=== PATIENT | male | born 1990 | race Caucasian/White ===

== ENCOUNTER 2017-04-28 19:20 | Emergency (ER) | payer BC ==
[~2017-04-28] VITALS: Ht 180.3 cm; Wt 70.3 kg
[2017-04-28 19:35] VITALS: BP 104/46
--- NOTE | 2017-04-28 19:35 | NUR ---
PT AMBULATED TO ER BED 2
[2017-04-28 19:51] LABS: APPEARANCE,URINE CLEAR (CLEAR); BILIRUBIN,URINE NEGATIVE (NEGATIVE); BLOOD, URINE NEGATIVE (NEGATIVE); COLOR,URINE YELLOW (YELLOW); LEUKOCYTE ESTERASE ,URINE NEGATIVE (NEGATIVE); NITRITE, URINE NEGATIVE (NEGATIVE); UGLUCOSE NEGATIVE (NEGATIVE)
[2017-04-28 19:57] LABS: BARBITURATE, URINE NEG. ng/ml (NEG <=200); BENZODIAZEPINE, URINE NEG. ng/mL (NEG <=200); CANNABINOID, URINE POS. ng/mL (NEG <=50); COCAINE, URINE NEG. ng/mL (NEG <=300); OPIATE, URINE NEG. ng/mL (NEG <=2000); PHENCYCLIDINE SCREEN,URINE NEG. ng/mL (NEG <=25)
--- NOTE | 2017-04-28 20:00 | NUR ---
26Y/M BIBA FOR SUICIDAL IDEATION. HX OF PTSD, NKA. PER EMS PT FAMILY CALLED PD BECAUSE PT WAS VOCALIZING WANTING TO HURT HIMSELF. ON ARRIVAL PT IS COOPERATIVE, ANXIOUS, AA&OX4. PT DENIES PAIN, N/V/D, DIZZINESSS. PER PT HE TOOK 3 50 MG TRAZADONE AROUND 5-6PM TO GO TO SLEEP AND DRANK 4-5 BEERS. PT STATES HE IS SUPPOSE TO TAKE MEDICATION FOR PTSD BUT DOES NOT AT THIS TIME.
[2017-04-28 20:12] LABS: BASOPHILS # (AUTO) 0.5 K/uL (0.00-0.22); EOSINOPHILS # (AUTO) 0.1 K/uL (0-0.4); HEMATOCRIT 45.5 % (36-52); LYMPHOCYTES # (AUTO) 2.5 K/uL (2.0-11.5); MEAN CORPUSCULAR HEMOGLOBIN 30 pg (27-31); MEAN CORPUSCULAR HGB CONC 33 g/dL (33-37); MEAN CORPUSCULAR VOLUME 92 fL (80-94); MONOCYTES # (AUTO) 0.5 K/uL (0.8-1.0); NEUTROPHILS # (AUTO) 5.6 K/uL (1.8-7.7); PLATELET COUNT (AUTO) 233 K/uL (140-450); RED BLOOD CELL COUNT(AUTO) 4.97 MIL/uL (4.20-6.10); RED CELL DISTRIBUTION WIDTH 12.8 % (11.6-13.7); WHITE BLOOD COUNT (AUTO) 9.2 K/uL (4.8-10.8)
--- NOTE | 2017-04-28 20:14 | NUR ---
PO[facility] [employer]OL CONTACTED, ADVISED TO MONITOR PT FOR SEDATION, BRADYCARDIA, , SEIZURE, MONITOR PT FOR 4-6 HOURS FOR PEAK EFFECTS OF MEDICATION. LABS AND EKG ORDERED.
[2017-04-28 20:21] LABS: ANION GAP 16.3 (8-16); CARBON DIOXIDE 27.1 mmol/L (21-32); CHLORIDE 108 mmol/L (98-107); CREATININE 0.9 mg/dL (0.7-1.3); GFR ARICAN-AMERICAN 132 mL/min (>90); GLUCOSE 99 mg/dL (74-106); POTASSIUM 3.4 mmol/L (3.5-5.1); SODIUM SERUM 148 mmol/L (136-145); UREA NITROGEN, BLOOD 7 mg/dL (7-18)
[2017-04-28 20:26] LABS: ALBUMIN 4.2 g/dL (3.4-5.0); ASPARTATE AMINOTRANSFERASE 26 U/L (15-37); TOTAL BILIRUBIN 0.3 mg/dL (0.0-1.0)
[2017-04-28 20:27] LABS: ACETAMINOPHEN < 0.5 ug/ml (10-30); SALICYLATE < 2.8 mg/dL (2.8-20.0)
[2017-04-28] MEDS ORDERED: POTASSIUM CHLORIDE 20% 40 MEQ/15 ML UDC PO ONE (20:35)
--- NOTE | 2017-04-28 22:30 | NUR ---
PT SITTING BED, AA&OX4, TALKING TO STAFF, COOPERATIVE, ANXIOUS.
[2017-04-28] MEDS ORDERED: NACL 0.9% 1,000 ML IV ONE (23:55)
--- NOTE | 2017-04-29 | NUR ---
PT SLEEPING IN BED WILL CONTINUE TO MONITOR.
[2017-04-29] MEDS ORDERED: NACL 0.9% 1,000 ML IV ONE (01:35)
--- NOTE | 2017-04-29 02:06 | NUR ---
PT WILL GO TO [facility], REPORT CALLED TO [facility] FOR TRANSPORT 30MIN.
--- NOTE | 2017-04-29 02:36 | NUR ---
Patient appears to be resting comfortably in bed. Vital Signs within normal limits. Respirations even and unlabored.
[2017-04-29 02:55] VITALS: BP 127/89
--- NOTE | 2017-04-29 02:57 | NUR ---
Patient discharged with v/s stable. Written and verbal after care instructions given and explained. Patient alert, oriented and verbalized understanding of instructions. Ambulatory with by caregiver. All questions addressed prior to discharge. ID band removed. Patient advised to follow up with PMD.NO Rx given. Patient educated on indication of medication including possible reaction and side effects. Opportunity to ask questions provided and answered. Patient to be transferred to [facility]. Is being transferred due to 5150 CARE. Receiving facility has accepting physician and available space. ER physician has signed transfer form. Patient or responsible libertarian has agreed to transfer and signed form. Patient belongings inventoried and will be sent with patient. Copy of nursing notes, lab reports, EKG, Physicians Orders and X-rays to be sent with patient. Report called to RICHARD BY NAVI MCKEON at receiving facility. [facility] ambulance service has been called for transfer. ETA is NOW.
== END 2017-04-29 02:55 ==
LOC: MED 19:20
DX: R45.851 Suicidal ideations (principal); S01.91XA Laceration without foreign body of unspecified part of head, initial encounter; F43.10 Post-traumatic stress disorder, unspecified; F41.9 Anxiety disorder, unspecified; R45.1 Restlessness and agitation; W22.8XXA Striking against or struck by other objects, initial encounter; Y93.E5 Activity, floor mopping and cleaning; Y92.89 Other specified places as the place of occurrence of the external cause; Y99.8 Other external cause status
CPT/HCPCS: 36415; 80053; 80305; 81003; 85025; 96360; 96361; 99285; G0480; G0482; J7030

== ENCOUNTER 2018-07-12 15:45 | Inpatient (IN) | payer BC, OTHER ==
[~2018-07-12] VITALS: Ht 182.9 cm; Wt 72.6 kg
[2018-07-12 15:45] VITALS: BP 139/78
--- NOTE | 2018-07-12 16:00 | NUR ---
PT CALLED TO BE TRIAGE. PATIENT LEFT WITHOUT BEING SEEN BY DR. LANE. NO FURTHER CARE PROVIDED FOR PATIENT.
--- NOTE | 2018-07-12 16:05 | NUR ---
PER WILLARD DIAS, PT IS TO BE PUT ON 5150 HOLD. PT WILL BE BROUGHT BACK.
--- NOTE | 2018-07-12 16:30 | NUR ---
PATIENT BIB [facility]. SITTING IN CHAIR E AT THIS TIME. NO SIGNS OF DISTRESS.
--- NOTE | 2018-07-12 16:33 | NUR ---
PT TAKEN TO ER BED 06
--- NOTE | 2018-07-12 16:39 | NUR ---
[place] [facility] AT BEDSIDE AT THIS TIME
--- NOTE | 2018-07-12 16:40 | NUR ---
Pt report given to ARTURO MCELROY. Transfer of care at this time.
--- NOTE | 2018-07-12 16:46 | NUR ---
27/M BIB EMS/[place] [employer] FOR 5150/SI IDEATION. PT REPORTS THAT HE WANS TO HURT MYSELF BUT HAS NO SPECIFIC PLAN. PMH--PTSD (), ETOH ABUSE. PATIENT STATES PAIN OF 0/10 AT THIS TIME. PATIENT POSITIONED FOR COMFORT; HOB ELEVATED; BEDRAILS UP X2; BED DOWN. ER MD MADE AWARE OF PT STATUS.
[2018-07-12] MEDS ORDERED: FAMOTIDINE 20 MG/2 ML VIAL IVP ONE (16:55)
[2018-07-12] MEDS ORDERED: MULTIVITAMIN-12 10 ML, THIAMINE 100 MG, MAGNESIUM SULFATE 50% 2,000 MG, FOLIC ACID 5 MG... IV ONE ×5 (16:55)
[2018-07-12] MEDS ORDERED: diphenhydrAMINE 50 MG/ML VIAL IVP ONE (16:55)
[2018-07-12 17:18] LABS: APPEARANCE,URINE CLEAR (CLEAR); BILIRUBIN,URINE NEGATIVE (NEGATIVE); BLOOD, URINE NEGATIVE (NEGATIVE); COLOR,URINE YELLOW (YELLOW); LEUKOCYTE ESTERASE ,URINE NEGATIVE (NEGATIVE); NITRITE, URINE NEGATIVE (NEGATIVE); UGLUCOSE NEGATIVE (NEGATIVE)
[2018-07-12 17:23] LABS: BARBITURATE, URINE NEG. ng/ml (NEG <=200); BENZODIAZEPINE, URINE NEG. ng/mL (NEG <=200); CANNABINOID, URINE NEG. ng/mL (NEG <=50); COCAINE, URINE NEG. ng/mL (NEG <=300); OPIATE, URINE NEG. ng/mL (NEG <=2000); PHENCYCLIDINE SCREEN,URINE NEG. ng/mL (NEG <=25)
[2018-07-12 17:38] LABS: BASOPHILS # (AUTO) 0.1 K/uL (0.00-0.22); BASOPHILS % (AUTO) 0.7 % (0.0-2.0); EOSINOPHILS # (AUTO) 0.1 K/uL (0-0.4); EOSINOPHILS % (AUTO) 1.3 % (0.0-4.0); HEMATOCRIT 45.7 % (36-52); HEMOGLOBIN 15.5 g/dL (12.0-18.0); LYMPHOCYTES # (AUTO) 3.2 K/uL (2.0-11.5); MEAN CORPUSCULAR HEMOGLOBIN 31 pg (27-31); MEAN CORPUSCULAR HGB CONC 34 g/dL (33-37); MEAN CORPUSCULAR VOLUME 90.7 fL (80-94); MONOCYTES # (AUTO) 0.4 K/uL (0.8-1.0); MONOCYTES % (AUTO) 5.1 % (1.7-9.3); NEUTROPHILS # (AUTO) 4.6 K/uL (1.8-7.7); NEUTROPHILS % (AUTO) 54.9 % (42.2-75.2); PLATELET COUNT (AUTO) 279 K/uL (140-450); RED BLOOD CELL COUNT(AUTO) 5.04 MIL/uL (4.20-6.10); RED CELL DISTRIBUTION WIDTH 13.8 % (11.6-13.7); WHITE BLOOD COUNT (AUTO) 8.3 K/uL (4.8-10.8)
--- NOTE | 2018-07-12 17:42 | NUR ---
Patient appears to be resting comfortably in bed. Vital Signs within normal limits. Respirations even and unlabored. DENIES TO HURT HIMSELF OR OTHERS AT THIS TIME. WILL CONTINUE TO MONITOR.
[2018-07-12 17:56] LABS: ANION GAP 10.6 (8-16); CHLORIDE 109 mmol/L (98-107); GFR ARICAN-AMERICAN 116 mL/min (>90); GLUCOSE 98 mg/dL (74-106); POTASSIUM 3.6 mmol/L (3.5-5.1); SODIUM SERUM 148 mmol/L (136-145); UREA NITROGEN, BLOOD 10 mg/dL (7-18)
[2018-07-12 18:05] LABS: ALBUMIN 4.3 g/dL (3.4-5.0); ASPARTATE AMINOTRANSFERASE 28 U/L (15-37); TOTAL BILIRUBIN 0.3 mg/dL (0.0-1.0)
[2018-07-12] MEDS ORDERED: CITA40TA13 PO (18:18)
[2018-07-12] MEDS ORDERED: GABA400C PO (18:18)
[2018-07-12] MEDS ORDERED: PANT40EC PO (18:18)
[2018-07-12 18:24] LABS: ACETAMINOPHEN < 0.5 ug/ml (10-30); SALICYLATE < 2.8 mg/dL (2.8-20.0)
--- NOTE | 2018-07-12 18:33 | NUR ---
TELEPSYCH INITIATED ORDERED BY DR. Jess LANE
--- NOTE | 2018-07-12 19:12 | NUR ---
Pt report given to EMILIA MCELROY. Transfer of care at this time.
--- NOTE | 2018-07-12 19:30 | NUR ---
KARLA MCELROY AT BEDSIDE SITTER FOR PT.
--- NOTE | 2018-07-12 19:38 | NUR ---
TELEPSYCH, DR. NICOLE, CALLED BACK AND SPOKE WITH NAVI CROSS
--- NOTE | 2018-07-12 19:41 | NUR ---
SAMANTHAAR PROVIDED TO DR. NICOLE IN PREPARATION FOR TELE-SCH.
--- NOTE | 2018-07-12 19:47 | NUR ---
TELEPSYCH, DR. NICOLE, SPEAKING WITH PT VIA REMOTE COMMUNICATION
--- NOTE | 2018-07-12 19:56 | NUR ---
TELEPSYCH, DR. NICOLE, CALLED BACK AND SPOKE WITH NAVI CROSS
--- NOTE | 2018-07-12 19:56 | NUR ---
SPOKE W/ DR. NICOLE, RECOMMENDATION IS TO KEEP THE HOLD IN PLACE. PER DR. NICOLE; PT STATED TO HIM THAT HE HAS ATTEMPTED TO SLIT HIS WRIST BEFORE, IS CURRENTLY HAVING NIGHTMARES AND FLASHBACKS, PT STATES HE IS UNDER TO MUCH STRESS AND WANTS HELP FOR HIS SI. --DR. QUEEN MADE AWARE.
--- NOTE | 2018-07-13 | NUR ---
Patient appears to be resting comfortably in bed. Vital Signs within normal limits. Respirations even and unlabored. Evy MCELROY at bedside as sitter.
--- NOTE | 2018-07-13 03:16 | NUR ---
Patient appears to be resting comfortably in bed. Vital Signs within normal limits. Respirations even and unlabored. Evy MCELROY at bedside.
--- NOTE | 2018-07-13 05:45 | NUR ---
Patient appears to be resting comfortably in bed. Vital Signs within normal limits. Respirations even and unlabored. Evy MCELROY at bedside.
[2018-07-13] MEDS ORDERED: DOCUSATE SODIUM 100 MG GELCAP PO PRN (06:20)
[2018-07-13] MEDS ORDERED: ONDANSETRON 4 MG/2 ML VIAL IM/IVP PRN (06:20)
[2018-07-13] MEDS ORDERED: ACETAMINOPHEN 325 MG TAB PO PRN (06:20)
--- NOTE | 2018-07-13 06:20 | NUR ---
packet still being reviewed by the following facilities [facility] will notify ER if placment is found.
[2018-07-13] MEDS ORDERED: LORazepam 2 MG/ML VIAL IVP PRN ×2 (06:25→06:30)
--- NOTE | 2018-07-13 06:38 | NUR ---
RECEIVED FROM ER PER WHEELCHAIR, AWAKE AND ALERT. NO SOB. DENIES PAIN AT THIS TIME. CARE PLANS FOR THE DAY DISCUSSED WITH HIM. SKIN INTACT. CTAB. NO EDEMA. DX. SUICIDAL IDEATION. HX. ETOH AND PTSD. PT. AT THIS TIME CALM AND QUIET. PT. WILL BE WITH SITTER 1:1. ABLE TO VERBALIZE NEEDS WELL. AFEBRILE.
--- NOTE | 2018-07-13 06:40 | NUR ---
Patient will be admitted to care of Dr. Bowen. Admited to Med-Surg. Patient went to room 109-B via wheelchair; VSS. Belongings list completed. Report to NAVI Benitez.
[2018-07-13 06:44] VITALS: BP 105/62
[2018-07-13] MEDS ORDERED: NACL 0.45% 1,000 ML IV ONE (06:45)
--- NOTE | 2018-07-13 07:30 | NUR ---
Received report from pm nurse Eli. Pt asleep in bed, respirations even & nonlabored, FLACC 0.
[2018-07-13 08:00] VITALS: BP 119/69
--- NOTE | 2018-07-13 08:00 | NUR ---
Pt asleep in bed upon entering room. Wakes up when name is called. Pt is aaox4, medical hx provided by pt. No c/o discomfort, respirations even & nonlabored. Left ac IV intact & asymptomatic. Sitter at bedside for continuous monitoring.
--- NOTE | 2018-07-13 08:04 | NUR ---
PATIENT HAS BEEN SCREENED AND CATEGORIZED LOW NUTRITION RISK. PATIENT WILL BE SEEN WITHIN 7 DAYS OF ADMISSION. 07/19/[address]
[2018-07-13 08:34] LABS: PROTHROMBIN TIME 10.2 secs (10.8-13.4)
[2018-07-13 08:48] LABS: CHOL/HDL RATIO 2.8 (1-4.5); FREE T4 (FREE THYROXINE) 0.71 ng/dL (0.76-1.46); MAGNESIUM 1.8 mg/dL (1.8-2.4); PHOSPHORUS 2.5 mg/dL (2.5-4.9); THYROID STIMULATING HORMONE 1.19 uIU/mL (0.34-3.74)
[2018-07-13] MEDS ORDERED: THIAMINE 100 MG TAB PO SCH (09:00)
[2018-07-13] MEDS ORDERED: FOLIC ACID 1 MG TAB PO SCH (09:00)
[2018-07-13] MEDS: chlordiazePOXIDE 25 MG CAP PO SCH ×3 (09:06→18:25)
--- NOTE | 2018-07-13 09:06 | NUR ---
Zofran given for c/o nausea. No episode of vomiting. Ice chips provided. Pt calm & cooperative with care. Sitter at bedside for continuous monitoring.
[2018-07-13] MEDS ORDERED: HYDR-1093 PO (10:00)
[2018-07-13] MEDS ORDERED: CITALOPRAM 20 MG TAB PO SCH ×2 (10:01→10:05)
--- NOTE | 2018-07-13 10:06 | NUR ---
Pt asleep, wakes up when name is called. AAOx4. No c/o discomfort, states no longer feeling nauseous. Able to eat breakfast without difficulty. Sitter at bedside.
[2018-07-13] MEDS ORDERED: MULTIVITAMIN 1 TAB PO SCH (11:16)
--- NOTE | 2018-07-13 11:45 | NUR ---
PATIENT LEFT THE FACILITY AT 2345 WITH [facility]. Addendum: 07/14/18 at 0004 by Rosi Ma RN INCORRECT TIME. IT SHOULD BE 2345 07/13/18
--- NOTE | 2018-07-13 13:00 | NUR ---
Received call from Sarai from [facility]. Per Sarai, pt will need an EKG done & physician will need to speak with receiving doctor (Dr. Shaw [phone]). Dr. Richards notified & states she will call Dr. Shaw & input order for EKG.
[2018-07-13] MEDS ORDERED: ATI2I IVP ×2 (13:47)
[2018-07-13] MEDS ORDERED: LIB25 PO (13:47)
[2018-07-13] MEDS ORDERED: FOLI1TAB90 PO (13:47)
[2018-07-13] MEDS ORDERED: THIA-34 PO (13:47)
[2018-07-13] MEDS ORDERED: MULT-405 PO (13:47)
[2018-07-13 14:43] LABS: ANION GAP 8.7 (8-16); CARBON DIOXIDE 30.3 mmol/L (21-32)
[2018-07-13 16:00] VITALS: BP 105/67
--- NOTE | 2018-07-13 18:13 | NUR ---
CALLED [facility] AND SPOKE TO CAROL THE [facility] . PATIENT WILL GO TO [facility] UNIT RM 901 BED B AT 2330. ACCE[address] MD DR. AGFFNEY, REPORT TO [phone]
--- NOTE | 2018-07-13 19:17 | NUR ---
Report given to pm nurse Kisses.
--- NOTE | 2018-07-13 19:30 | NUR ---
PATIENT SLEEPING AROUSABLE BY NAME. RESPIRATION EVEN UNLABORED ON ROOM AIR. DENIES PAIN. SKIN IS WARM AND DRY. ALL SAFETY MEASURE IN PLACE. 1 TO 1 SITTER AT BEDSIDE. PLAN OF CARE WAS DISCUSSED. BED IS AT LOW POSITION. CALL LIGHT WITHIN REACH.
[2018-07-13 22:00] VITALS: BP 105/67
--- NOTE | 2018-07-13 22:49 | NUR ---
GAVE REPORT TO SEVEN MCELROY [facility]. AWAITING FOR DAIRY TESTER.
[2018-07-14] MEDS ORDERED: CITALOPRAM 20 MG TAB PO SCH ×2 (09:00)
[2018-07-14] MEDS ORDERED: MULTIVITAMIN 1 TAB PO SCH (09:00)
[2018-07-14] MEDS ORDERED: hydrOXYzine HCL 25 MG TAB PO SCH ×2 (09:00)
== END 2018-07-13 23:50 | disposition short-term general hospital (02) | DRG 775 ==
LOC: MED 15:45 → MTU 07-13 06:17
PROVIDERS: ADMIT General Practice; ATTEND General Practice
DX: F10.129 Alcohol abuse with intoxication, unspecified (principal); G92 Toxic encephalopathy; E87.0 Hyperosmolality and hypernatremia; R45.851 Suicidal ideations; Y90.8 Blood alcohol level of 240 mg/100 ml or more; E78.5 Hyperlipidemia, unspecified; F41.1 Generalized anxiety disorder; F32.9 Major depressive disorder, single episode, unspecified; F43.10 Post-traumatic stress disorder, unspecified; Y90.9 Presence of alcohol in blood, level not specified; F41.9 Anxiety disorder, unspecified; Z91.19 Patient's noncompliance with other medical treatment and regimen; E86.0 Dehydration
CPT/HCPCS: 36415; 80048; 80053; 80305; 81003; 82150; 82550; 83036; 83605; 83690; 83735; 83880; 84100; 84134; 84439; 84443; 85025; 85610; 85730; 87081; 93005; 96365; 96366; 96375; 99285; A9153; G0480; G0482; J1200; J2405; J3411; J3475; J3490; J7030

== ENCOUNTER 2019-11-05 07:08 | Emergency (ER) | payer OTHER ==
[~2019-11-05] VITALS: Ht 180.3 cm; Wt 71.7 kg
[~2019-11-05 07:08] MED LIST: ATI2I IVP; CITA40TA13 PO; FOLI1TAB90 PO; GABA400C PO; HYDR-1093 PO; LIB25 PO; MULT-405 PO; THIA-34 PO
[2019-11-05 07:12] VITALS: BP 128/76
--- NOTE | 2019-11-05 07:12 | NUR ---
Negative screen for covid.
--- NOTE | 2019-11-05 07:12 | NUR ---
Pt also reports daily marijuana use.
--- NOTE | 2019-11-05 07:12 | NUR ---
Pt ambulatory to ED, brought by mother, c/o n/v x10, started this AM. Pt denies cough/congestion, CP/SOB or pain. Pt afebrile. Pt awake and alert, skin normal color diaphoretic and cool, rr even and unlabored. Pt denies alcohol abuse. hx HTN, alcohol abuse (quit 1 year ago) rx vivitrel IM monthly (taken 2 days ago, gabapentin, hydroxyzine, lithium, quetipine, citalopram
[2019-11-05] MEDS ORDERED: ONDANSETRON 4 MG/2 ML VIAL IVP ONE (07:40)
[2019-11-05 08:08] LABS: HEMATOCRIT 40.7 % (36-52); HEMOGLOBIN 13.5 g/dL (12.0-18.0); MEAN CORPUSCULAR HEMOGLOBIN 30 pg (27-31); MEAN CORPUSCULAR HGB CONC 33 g/dL (33-37); MEAN CORPUSCULAR VOLUME 91.4 fL (80-94); PLATELET COUNT (AUTO) 238 K/uL (140-450); RED BLOOD CELL COUNT(AUTO) 4.46 MIL/uL (4.20-6.10); RED CELL DISTRIBUTION WIDTH 14.1 % (11.6-13.7); WHITE BLOOD COUNT (AUTO) 14.5 K/uL (4.8-10.8)
[2019-11-05] MEDS ORDERED: NACL 0.9% 1,000 ML IV ONE ×2 (08:15→08:20)
[2019-11-05 08:23] LABS: ANION GAP 14.2 (8-16); CARBON DIOXIDE 27.6 mmol/L (21-32); CHLORIDE 108 mmol/L (98-107); CREATININE 1.1 mg/dL (0.6-1.3); GFR ARICAN-AMERICAN 103 mL/min (>90); GLUCOSE 161 mg/dL (74-106); POTASSIUM 3.8 mmol/L (3.5-5.1); SODIUM SERUM 146 mmol/L (136-145); UREA NITROGEN, BLOOD 11 mg/dL (7-18)
[2019-11-05 08:30] LABS: LYMPHOCYTES % (MANUAL) 14 % (20-46); MONOCYTES % (MANUAL) 3 % (5-12)
[2019-11-05 08:38] LABS: ACETAMINOPHEN < 0.5 ug/ml (10-30); ASPARTATE AMINOTRANSFERASE 35 U/L (15-37); SALICYLATE 3.3 mg/dL (2.8-20.0); THYROID STIMULATING HORMONE 1.43 uIU/mL (0.34-3.74); TOTAL BILIRUBIN 0.6 mg/dL (0.0-1.0)
--- NOTE | 2019-11-05 09:18 | NUR ---
Pt taken to CT
[2019-11-05] MEDS ORDERED: HALOPERIDOL IM 5 MG/ML VIAL IVP ONE (09:50)
--- NOTE | 2019-11-05 10:00 | NUR ---
Pt c/o nausea and dry heaving, came back after short-term relief with zofran IVP. Administered 3mg haldol IVP as ordered with education. Pt verbalized understanding, tolerated med well. Denies any pain. All needs met.
[2019-11-05] MEDS ORDERED: NACL 0.9% 250 ML IV ONE (10:10)
[2019-11-05] MEDS ORDERED: metroNIDAZOLE 500 MG/NS PREMIX 100 ML IV ONE (10:10)
[2019-11-05] MEDS ORDERED: cefTRIAXone 1,000 MG VIAL ONE (10:16)
[2019-11-05] MEDS ORDERED: ESK300 PO (10:22)
[2019-11-05] MEDS ORDERED: [UNRECOGNIZED DRUG - CODE] IM (10:22)
[2019-11-05 10:51] LABS: APPEARANCE,URINE CLEAR (CLEAR); BILIRUBIN,URINE NEGATIVE (NEGATIVE); BLOOD, URINE NEGATIVE (NEGATIVE); COLOR,URINE YELLOW (YELLOW); LEUKOCYTE ESTERASE ,URINE NEGATIVE (NEGATIVE); NITRITE, URINE NEGATIVE (NEGATIVE); PH,URINE 7.5 (5.0-9.0); UGLUCOSE NEGATIVE (NEGATIVE)
--- NOTE | 2019-11-05 11:12 | NUR ---
Patient does not wish to proceed with medical care recommended by Dr. May. Patient given information related to possible complications, up to and including , which could occur as a result of leaving hospital at this time. Patient verbalizes understanding of risks involved leaving against medical advice. Patient has signed AMA form. IV removed, catheter intact.
[2019-11-05 11:13] VITALS: BP 127/50
== END 2019-11-05 11:00 | disposition left against medical advice (07) ==
LOC: MED 07:08
DX: R11.10 Vomiting, unspecified (principal); D72.829 Elevated white blood cell count, unspecified; E87.0 Hyperosmolality and hypernatremia; F12.90 Cannabis use, unspecified, uncomplicated; I10 Essential (primary) hypertension; R73.9 Hyperglycemia, unspecified; T56.891A Toxic effect of other metals, accidental (unintentional), initial encounter
CPT/HCPCS: 36415; 71045; 74177; 80053; 80178; 81003; 83605; 84443; 85025; 87040; 87086; 93005; 96361; 96365; 96375; 99291; G0480; J0696; J1630; J2405; Q0092; Q9967; 99285; J7030

== ENCOUNTER 2019-11-05 14:52 | Emergency (ER) | payer OTHER ==
[~2019-11-05] VITALS: Ht 180.3 cm; Wt 70.3 kg
[~2019-11-05 14:52] MED LIST changes: +ESK300 PO; +[UNRECOGNIZED DRUG - CODE] IM
[2019-11-05 14:55] VITALS: BP 109/66
--- NOTE | 2019-11-05 15:05 | NUR ---
PT AMBULATE TO BED 7 WITH STEADY GAIT.
--- NOTE | 2019-11-05 15:11 | NUR ---
C/O MID ABDOMINBAL PAIN, N/V/D X TODAY. PT AOX4 , AFIBRILE , AMBULATORY WITH STEADY GAIT , MOIST MUCOUS MEMBRANE , LAST BM WAS THIS AM LOOSE AND WATERY WITH FOUL SMELLING ODOR. MED HX: DENIES HX SI OR PTSD
--- NOTE | 2019-11-05 15:12 | NUR ---
DR PHELPS AT BEDSIDE EVALUATING PT.
[2019-11-05] MEDS ORDERED: CAPSAICIN 0.025% CRE 60 GM TUBE TP SCH (15:15)
[2019-11-05 15:33] LABS: BASOPHILS % (AUTO) 0.3 % (0.0-2.0); HEMATOCRIT 38.8 % (36-52); HEMOGLOBIN 12.8 g/dL (12.0-18.0); LYMPHOCYTES # (AUTO) 0.8 K/uL (2.0-11.5); LYMPHOCYTES % (AUTO) 5.6 % (20.5-51.1); MEAN CORPUSCULAR HEMOGLOBIN 30 pg (27-31); MEAN CORPUSCULAR HGB CONC 33 g/dL (33-37); MEAN CORPUSCULAR VOLUME 91.4 fL (80-94); MONOCYTES # (AUTO) 0.4 K/uL (0.8-1.0); MONOCYTES % (AUTO) 2.5 % (1.7-9.3); NEUTROPHILS # (AUTO) 12.9 K/uL (1.8-7.7); NEUTROPHILS % (AUTO) 91.6 % (42.2-75.2); PLATELET COUNT (AUTO) 232 K/uL (140-450); RED BLOOD CELL COUNT(AUTO) 4.24 MIL/uL (4.20-6.10); WHITE BLOOD COUNT (AUTO) 14.1 K/uL (4.8-10.8)
[2019-11-05 15:48] LABS: ALBUMIN 4.4 g/dL (3.4-5.0); ANION GAP 13.7 (8-16); CREATININE 1.1 mg/dL (0.6-1.3); POTASSIUM 3.7 mmol/L (3.5-5.1); TOTAL BILIRUBIN 0.8 mg/dL (0.0-1.0)
--- NOTE | 2019-11-05 15:51 | NUR ---
PT WENT TO BR AMBULATED WITH STEADY GAIT.
--- NOTE | 2019-11-05 15:53 | NUR ---
PT BACK FROM BR , COMFORTABLE IN BED , SIDE RAILS UP X1 AND LOCK.
[2019-11-05 16:31] LABS: BARBITURATE, URINE NEGATIVE ng/ml (NEG <=200); BENZODIAZEPINE, URINE NEGATIVE ng/mL (NEG <=200); CANNABINOID, URINE POSITIVE ng/mL (NEG <=50); COCAINE, URINE NEGATIVE ng/mL (NEG <=300); OPIATE, URINE NEGATIVE ng/mL (NEG <=2000); PHENCYCLIDINE SCREEN,URINE NEGATIVE ng/mL (NEG <=25)
[2019-11-05 16:40] VITALS: BP 109/66
--- NOTE | 2019-11-05 16:40 | NUR ---
Patient discharged with v/s stable. Written and verbal after care instructions given and explained regarding n/v. Patient verbalized understanding. Ambulatory with steady gait. All questions addressed prior to discharge. Advised to follow up with PMD.
--- NOTE | 2019-11-05 16:44 | NUR ---
DR PHELPS AT BEDSIDE REEVALUATING PT.
== END 2019-11-05 16:44 | disposition home or self-care (01) ==
LOC: MED 14:52
DX: R11.10 Vomiting, unspecified (principal); R10.9 Unspecified abdominal pain
CPT/HCPCS: 36415; 80053; 80305; 83690; 85025; 99283

== ENCOUNTER 2019-11-23 14:53 | Emergency (ER) | payer OTHER ==
[~2019-11-23] VITALS: Ht 172.7 cm; Wt 81.6 kg
[~2019-11-23 14:53] MED LIST changes: -ATI2I IVP; -FOLI1TAB90 PO; -LIB25 PO; -MULT-405 PO; -THIA-34 PO
[2019-11-23 14:55] VITALS: BP 130/62
--- NOTE | 2019-11-23 15:02 | NUR ---
PT AMBULATED TO BED 7, STEADY GAIT.
--- NOTE | 2019-11-23 15:04 | NUR ---
AMBULATED TO CHAIR 7
--- NOTE | 2019-11-23 15:10 | NUR ---
DR. SAMS AT BEDSIDE.
[2019-11-23] MEDS ORDERED: HALOPERIDOL IM 5 MG/ML VIAL IVP ONE (15:15)
[2019-11-23] MEDS ORDERED: NACL 0.9% 1,000 ML IV ONE (15:15)
[2019-11-23] MEDS ORDERED: LORazepam 2 MG/ML VIAL IVP ONE (15:15)
--- NOTE | 2019-11-23 15:37 | NUR ---
29 Y/M PRESENTS TO ED C C/O STOMACH PAIN SINCE THIS MORNING 11/17 PAIN. PT REPORTS + NAUSEA/DIARRHEA. STATES HE CANNOT KEEP ANYTHING DOWN. DENIES ANY DRUG OR ALCOHOL USE. PT REPORTS HE SMOKED 1 BLUNT YESTERDAY. DENIES ANY ALCOHOL USE. ABD SOFT, BS ACTIVE X 3. DENIES FEVER, DIARRHEA. NO PMH NKA
[2019-11-23 16:01] LABS: BASOPHILS % (AUTO) 0.3 % (0.0-2.0); HEMATOCRIT 41.4 % (36-52); HEMOGLOBIN 13.5 g/dL (12.0-18.0); LYMPHOCYTES # (AUTO) 0.7 K/uL (2.0-11.5); LYMPHOCYTES % (AUTO) 4.4 % (20.5-51.1); MEAN CORPUSCULAR HEMOGLOBIN 30 pg (27-31); MEAN CORPUSCULAR HGB CONC 33 g/dL (33-37); MONOCYTES # (AUTO) 0.5 K/uL (0.8-1.0); MONOCYTES % (AUTO) 3.1 % (1.7-9.3); NEUTROPHILS # (AUTO) 14.8 K/uL (1.8-7.7); NEUTROPHILS % (AUTO) 92.2 % (42.2-75.2); PLATELET COUNT (AUTO) 291 K/uL (140-450); RED BLOOD CELL COUNT(AUTO) 4.46 MIL/uL (4.20-6.10); RED CELL DISTRIBUTION WIDTH 14.7 % (11.6-13.7); WHITE BLOOD COUNT (AUTO) 16.1 K/uL (4.8-10.8)
--- NOTE | 2019-11-23 16:11 | NUR ---
NADR, PT HAS NOT HAD ANY VOMITING EPISODES S/P RX. PT CALM, RESTING IN BED, RR EVEN AND UNLABORED.
[2019-11-23 16:16] LABS: ALBUMIN 4.7 g/dL (3.4-5.0); ANION GAP 19.9 (8-16); CARBON DIOXIDE 21.7 mmol/L (21-32); CREATININE 1.2 mg/dL (0.6-1.3); POTASSIUM 3.6 mmol/L (3.5-5.1); TOTAL BILIRUBIN 0.8 mg/dL (0.0-1.0)
--- NOTE | 2019-11-23 16:49 | NUR ---
DR. SAMS BEDSIDE REEVALUATING PT.
--- NOTE | 2019-11-23 16:52 | NUR ---
PT REPORTS HIS MOM WILL BE DRIVING HIM HOME
[2019-11-23 16:57] VITALS: BP 100/45
--- NOTE | 2019-11-23 16:57 | NUR ---
Patient discharged with v/s stable. Written and verbal after care instructions given and explained. Patient verbalized understanding. Ambulatory with steady gait. All questions addressed prior to discharge. Advised to follow up with PMD.
== END 2019-11-23 16:57 | disposition home or self-care (01) ==
LOC: MED 14:53
DX: R11.2 Nausea with vomiting, unspecified (principal); F41.9 Anxiety disorder, unspecified; F12.90 Cannabis use, unspecified, uncomplicated; I10 Essential (primary) hypertension; Z79.899 Other long term (current) drug therapy
CPT/HCPCS: 36415; 80053; 85025; 93005; 96361; 96374; 96375; 99284; J1630; J2060; J7030

== ENCOUNTER 2020-10-09 16:02 | Emergency (ER) | payer OTHER ==
[~2020-10-09] VITALS: Ht 180.3 cm; Wt 83.9 kg
[2020-10-09 16:06] VITALS: BP 135/67
--- NOTE | 2020-10-09 16:14 | NUR ---
PT TAKEN TO BED 3.
--- NOTE | 2020-10-09 16:15 | NUR ---
30 y/o M brought in from home with c/c nausea/vomiting. Patient A&Ox4, ambulatory reports that he smoke "a blunt" yesterday. Patient states today @ 1130 he began experiencing vomiting. Patient states "10-15 episodes" of vomiting. Pt reports taking Zofran ODT @ 1200 for nausea/vomiting without relief. Pt states hx of cyclic vomiting from excess THC in the past. Patient also states abdominal pain; LLQ, 10/10, throbbing/constant, non-radiating pain. Pt placed into a gown. Pt denies fever/chills, diarrhea, dizziness, blurry vision, headache. Bowel sounds normoactive x 4 quadrants. Skin pink/cool/dry. Bed locked in lowest position, side rails x 1, call light in reach. PMH: Cyclic vomiting NKA Sx: Denies Meds: "Vivitrol IM injection once/month"
--- NOTE | 2020-10-09 16:24 | NUR ---
Dr. Matthew is evaluating the patient at bedside.
--- NOTE | 2020-10-09 16:24 | NUR ---
Shelly [place] in [facility] - [facility]09[facility]20 [facility] is evaluating patient at bedside.
[2020-10-09] MEDS ORDERED: HALOPERIDOL IM 5 MG/ML VIAL ONE (16:29)
[2020-10-09] MEDS ORDERED: HALOPERIDOL IM 5 MG/ML VIAL IM ONE (16:30)
--- NOTE | 2020-10-09 16:45 | NUR ---
Patient reports "I feel the medication working." No vomiting noted at this time. VSS.
--- NOTE | 2020-10-09 16:47 | NUR ---
Dr. Matthew is reevaluating patient at bedside.
--- NOTE | 2020-10-09 16:48 | NUR ---
Patient on phone securing transportation home. States "ride will be here soon."
[2020-10-09 16:55] VITALS: BP 135/67
== END 2020-10-09 16:55 | disposition home or self-care (01) ==
LOC: MED 16:02
DX: F12.188 Cannabis abuse with other cannabis-induced disorder (principal); R11.15 Cyclical vomiting syndrome unrelated to migraine; I10 Essential (primary) hypertension; F43.10 Post-traumatic stress disorder, unspecified; Z79.899 Other long term (current) drug therapy
CPT/HCPCS: 96372; 99283; J1630

== ENCOUNTER 2023-05-01 20:37 | Emergency (ER) | payer MEDICAID, OTHER ==
[~2023-05-01] VITALS: Ht 180.3 cm; Wt 71.7 kg
[~2023-05-01 20:37] MED LIST changes: +ACET-10509 PO; +CYCL-711 PO; +IBUP-2213 PO; +LID5T TP
[2023-05-01 20:45] VITALS: BP 108/60; PULSE 62; RESP 18; TEMP 97.6; O2SAT 100
[2023-05-01] MEDS ORDERED: HALOPERIDOL IM 5 MG/ML VIAL IM ONE (20:55)
[2023-05-01] MEDS ORDERED: ONDA-188 SL (22:33)
[2023-05-01] MEDS ORDERED: CAPS42.514 TP (22:33)
[2023-05-01 22:41] VITALS: BP 112/64; PULSE 65; RESP 20; TEMP 97.6; O2SAT 98
== END 2023-05-01 22:41 | disposition home or self-care (01) ==
LOC: MED 20:37
DX: R11.2 Nausea with vomiting, unspecified (principal); Z79.899 Other long term (current) drug therapy
CPT/HCPCS: 96372; 99283; J1630